=== PATIENT | female | born 1990 | race Caucasian/White ===

== ENCOUNTER 2018-08-02 19:45 | Emergency (ER) | payer SELFPAY ==
[2018-08-02] MEDS ORDERED: traMADol HCL 50 MG TABLET PO ONE (20:01)
[2018-08-02] MEDS ORDERED: AMOXICILLIN/POT 875/125 1 EACH PO ONE (20:01)
--- NOTE | 2018-08-02 20:03 | ED Physician Documentation ---
Sore Throat/Dental Pain - HISTORIAN Historian: patient - HPI Stated Complaint: Dental pain Chief Complaint: Dental Pain Onset: days ago (2) Context: Fractured Tooth Associated Symptoms: denies: fever, sore throat Worsened By: heat, cold - ROS CONST: denies: no problems CVS/RESP: denies: chest pain, shortness of breath GI/: denies: nausea, vomiting MS/SKIN/LYMPH: denies: muscle aches NEURO/PSYCH: headache - PAST HX Past History: none Other History: none Allergies/Adverse Reactions: Allergies Allergy/AdvReac Type Severity Reaction Status Date / Time No Known Allergies Allergy Verified 08/02/18 19:58 Home Medications: Ambulatory Orders Medication Instructions Recorded Penicillin V Potassium [Pen V K] 500 mg PO TID #30 tablet 08/02/18 traMADol HCL [Ultram] 50 mg PO Q6H PRN #15 tablet 08/02/18 - SOCIAL HX Smoking History: non-smoker Alcohol Use: none Drug Use: none - FAMILY HX Family History: No - VITAL SIGNS Vital Signs: Vital Signs Temp Pulse Resp BP Pulse Ox 98.2 F 71 15 160/83 98 08/02/18 19:53 08/02/18 19:53 08/02/18 19:53 08/02/18 19:53 08/02/18 19:53 - REVIEWED ASSESSMENTS Nursing Assessment Reviewed: Yes Vitals Reviewed: Yes ED Results Lab/Radiology - Orders Orders: ED Orders Category Date Time Status Amoxicillin/Potassium Clav [Augmentin 875Mg/125Mg] Med 08/02/18 20:01 Once 1 each PO NOW ONE traMADol HCL [Ultram] Med 08/02/18 20:01 Once 50 mg PO NOW ONE Dental Pain Physical Exam - EXAM General Appearance: no acute distress, alert Head/Neck: No: cervical lymphadenopathy Eyes: PERRL Mouth/Throat: other (left lower molar fractured tooth) Ear/Nose: nml inspection. No: TM erythema Respiratory: no resp. distress, breath sounds nml CVS: reg. rate & rhythm, heart sounds nml Abdomen: soft, normal bowel sounds Extremities: non-tender Skin: warm/dry Neuro/Psych: No: weakness Discharge Clincal Impression: Pain, dental Prescriptions: Penicillin V Potassium [Pen V K] 500 mg PO TID #30 tablet traMADol HCL [Ultram] 50 mg PO Q6H PRN #15 tablet PRN Reason: dental pain Referrals: Primary Doctor,No [Primary Care Provider] - 2 Days Additional Instructions: 1. Take antibiotic as directed 2. Rinse mouth with 1 tsp salt/1 tsp baking soda in warm water after every meal and at bedtime. 3. Tylenol and/or ibuprofen as needed for pain. You may use this in addition to Tramadol 4. Follow up with a dentist as soon as possible. Condition: Stable Decision to Admit: NO Date of Decison to Admit: 08/02/18 Decision Time: 20:10
[2018-08-02 21:02] VITALS: BP 160/83
== END 2018-08-02 20:16 ==
LOC: ED 19:45
DX: K08.89 Other specified disorders of teeth and supporting structures (principal)
CPT/HCPCS: 99282; 99283